=== PATIENT | male | born 1965 | race African-American/Black ===

== ENCOUNTER 2019-01-25 19:16 | Inpatient (IN) | payer OTHER ==
[2019-01-25 20:18] VITALS: BMI 28.2
--- NOTE | 2019-01-25 21:43 | HP ---
CIWA Score Nausea/Vomitin-No Nausea/No Vomiting Muscle Tremors: 1-None Visible, but [place] Anxiety: 0-No Anxiety, at Ease Agitation: 0-Normal Activity Paroxysmal Sweats: 3 Orientation: 0-Oriented Tacttile Disturbances: 3-Moderate Itch/Numb/Burn Auditory Disturbances: 0-None Visual Disturbances: 0-None Headache: 0-None Present CIWA-Ar Total Score: 7 - Admission Criteria OASAS Guidelines: Admission for Medically Managed Detox: Requires at least one of the followin. CIWA greater than 12 2. Seizures within the past 24 hours 3. Delirium tremens within the past 24 hours 4. Hallucinations within the past 24 hours 5. Acute intervention needed for co occurring medical disorder 6. Acute intervention needed for co occurring psychiatric disorder 7. Severe withdrawal that cannot be handled at a lower level of care (continued vomiting, continued diarrhea, abnormal vital signs) requiring intravenous medication and/or fluids 8. Patient presents the following: Acute intervention needed for co-occurring med or psych disorder (depression/ bipoalr not complaint with meds) Admission Criteria Met: Admission criteria met Admission ROS [facility] Chief Complaint: C/O WORSENING WITHDRAWAL SX S Allergies/Adverse Reactions: Allergies Allergy/AdvReac Type Severity Reaction Status Date / Time pork derived (porcine) Allergy Rash Verified 01/25/19 20:03 Pork/Porcine Containing Allergy Rash Verified 01/25/19 20:03 Products History of Present Illness: HERE FOR ALCOHOL DETOX. CLIENT IS REFERRED BY [facility] DUE TO HIS MED HX/O KIDNEY DISEASE, PE AND DVTS ON AC. HE PRESENTS WITH C/O WORSENING WITHDRAWAL SX' S. SEEKING STABILIZATION. LAST DRINK ONE DAY AGO. + CIWA, + EYE DISPLAYER DUE TO WITHDRAWAL SX'S,. DENIES BLACK OUTS AND SEIZURES DT'S AV . REPORTS LONGEST CLEAN TIME 3 YEARS. DENIES ANY IN THE PAST YEAR. LIVES WITH FRIENDS, UNEMPLOYED , DENIES LEGALS Exam Limitations: No Limitations - Ebola screening Have you traveled outside of the country in the last 21 days: No (N) Have you had contact with anyone from an Ebola affected area: No Do you have a fever: No - Review of Systems Constitutional: Chills, Loss of Appetite, Night Sweats, Changes in sleep EENT: reports: Tearing, Dental Problems (MISSING TEETH) Respiratory: reports: No Symptoms reported Cardiac: reports: No Symptoms Reported GI: reports: Poor Fluid Intake : reports: No Symptoms Reported Musculoskeletal: reports: No Symptoms Reported Integumentary: reports: Dryness Neuro: reports: Headache, Tremors Endocrine: reports: No Symptoms Reported Hematology: reports: Blood Clots (DVT/PE) Psychiatric: reports: Orientated x3, Agitated (IRRITABLE), Anxious, Depressed Other Systems: Reviewed and Negative Patient History - Patient Medical History Hx Anemia: No Hx Asthma: Yes (HX/O NOT ON MEDS) Hx Chronic Obstructive Pulmonary Disease (COPD): No Hx Cancer: No Hx Cardiac Disorders: No Hx Congestive Heart Failure: No Hx Hypertension: Yes (AMLODIPINE) Hx Hypercholesterolemia: No Hx Pacemaker: No HX Cerebrovascular Accident: No Hx Seizures: No Hx Dementia: No Hx Diabetes: No Hx Gastrointestinal Disorders: No Hx Liver Disease: No Hx Genitourinary Disorders: No Hx Sexually Transmitted Disorders: No Hx Renal Disease (ESRD): Yes (STAGE 4 KIDNEY DISEASE) Hx Thyroid Disease: No Hx Human Immunodeficiency Virus (HIV): No Hx Hepatitis C: No Hx Depression: Yes (NO MEDS) Hx Suicide Attempt: No Hx Bipolar Disorder: Yes (NO MEDS) Hx Schizophrenia: Yes (NO MEDS) Other Medical History: PE/DVTS ON AC - Patient Surgical History Past Surgical History: No - PPD History Previous Implant?: Yes Documented Results: Negative w/o proof Implanted On Prior [facility] Admission?: No PPD to be Administered?: Yes - Smoking Cessation Smoking history: Current every day smoker Have you smoked in the past 12 months: Yes Aproximately how many cigarettes per day: 10 Hx Chewing Tobacco Use: No Initiated information on smoking cessation: Yes 'Breaking Loose' booklet given: 01/25/19 - Substance & Tx. History Hx Alcohol Use: Yes Hx Substance Use: Yes Substance Use Type: Alcohol, Cocaine Hx Substance Use Treatment: Yes ([facility]) - Substances abused Alcohol Substance route: Oral Frequency: Daily Amount used: ' too much', can't detect Age of first use: 12 Date of last use: 01/25/19 Crack Substance route: Smoking Frequency: Daily Amount used: 200 to 300 hundred Age of first use: 17 Date of last use: 01/25/19 Admission Physical Exam [facility] - Vital Signs Vital Signs: Vital Signs - 24 hr 01/25/19 20:01 Temperature 97.4 F L Pulse Rate 86 Respiratory 16 Rate Blood Pressure 184/110 H - Physical General Appearance: Yes: Mild Distress, Tremorous (FELT), Other (MALODUROUS UNKEPT) HEENTM: Yes: EOMI, Normocephalic, Normal Voice, JUSTIN, Pharynx Normal, Other ( DISCOLORED STAINED TEETH) Respiratory: Yes: Chest Non-Tender, Lungs Clear, Normal Breath Sounds, No Respiratory Distress, No Accessory Muscle Use Neck: Yes: No masses,lesions,Nodules, Supple, Trachea in good position Breast: Yes: Breasts Symetrical, No Discharge Cardiology: Yes: Regular Rhythm, S1, S2, Murmur Abdominal: Yes: Non Tender, Soft, Increased Bowel Sounds, Protuberent Genitourinary: Yes: Within Normal Limits Back: Yes: Normal Inspection Musculoskeletal: Yes: Gait Steady Extremities: Yes: Normal Range of Motion, Non-Tender, Tremors, Pedal Edema ( EDEMA OF BOTHE LEGES L>R PITTING) Neurological: Yes: Fully Oriented, Alert, Motor Strength 5/5 Integumentary: Yes: Dry, Cold, Other (PILORECTION) Lymphatic: Yes: Within Normal Limits - Diagnostic (1) Alcohol dependence with withdrawal, uncomplicated Current Visit: Yes Status: Acute (2) Nicotine dependence Current Visit: Yes Status: Acute (3) Pulmonary embolism on long-term anticoagulation therapy Current Visit: Yes Status: Acute (4) DVT (deep venous thrombosis) Current Visit: Yes Status: Acute (5) HTN (hypertension) Current Visit: Yes Status: Acute (6) Substance induced mood disorder Current Visit: Yes Status: Acute (7) Poor personal hygiene Current Visit: Yes Status: Acute (8) At risk for dehydration due to poor fluid intake Current Visit: Yes Status: Acute (9) Psychiatric disorder Current Visit: Yes Status: Acute (10) Edema, pitting Current Visit: Yes Status: Acute Comment: BLE Cleared for Admission S - Detox or Rehab S Level of Care: Medically Managed Detox Regimen/Protocol: Librium Claeared for Rehab Admission: No Breathalyzer - Breathalyzer Breathalyzer: 0 Urine Drug Screen - Test Device Lot number: [id number] Expiration date: 09/17/20 - Control Is test valid?: Yes - Results Drug screen NEGATIVE: No Urine drug screen results: EDSON-Cocaine Inpatient Rehab Admission - Rehab Decision to Admit Inpatient rehab admission?: No
[2019-01-25] MEDS ORDERED: IBUPROFEN 400 MG TABLET (FP) PO PRN (21:52)
[2019-01-25] MEDS ORDERED: MAGNESIUM HYDROX 2400MG/30ML ORAL SUSPENSION 30 ML CUP PO PRN (21:52)
[2019-01-25] MEDS ORDERED: P-EPHED 60MG/TRIPROLIDI 2.5MG TABLET PO PRN (21:52)
[2019-01-25] MEDS ORDERED: MAGNESIUM CITRATE 300 ML BOTTLE PO PRN (21:52)
[2019-01-25] MEDS ORDERED: DICYCLOMINE HCL 10 MG CAPSULE PO PRN (21:52)
[2019-01-25] MEDS ORDERED: MELATONIN 5 MG TABLETS PO PRN (21:52)
[2019-01-25] MEDS ORDERED: ACETAMINOPHEN 325 MG TABLET (FP) PO PRN ×2 (21:52)
[2019-01-25] MEDS ORDERED: BISMUTH SUBSALICYLATE 524 MG/30 ML UD PO PRN (21:52)
[2019-01-25] MEDS ORDERED: METHOCARBAMOL 500 MG TABLET PO PRN (21:52)
[2019-01-25] MEDS ORDERED: guaiFENesin 200 MG/10 ML 10 ML UNIT-DOSE CUPS PO PRN (21:52)
[2019-01-25] MEDS ORDERED: chlordiazePOXIDE HCL 25 MG CAPSULE PO PRN (21:52)
[2019-01-25] MEDS ORDERED: ONDANSETRON *ODT* 4 MG TABLET SL PRN (21:52)
[2019-01-25] MEDS ORDERED: MENTHOL/PHENOL 1 EACH UD MM PRN (21:52)
[2019-01-25] MEDS ORDERED: MAG HYDROX/AL HYDROX/SIMETH 30 ML UNIT-DOSE CUP PO PRN (21:52)
[2019-01-25] MEDS ORDERED: NICOTINE POLACRILEX 2 MG GUM BUC PRN (21:52)
[2019-01-25] MEDS ORDERED: hydrOXYzine PAMOATE 25 MG CAPSULE (FP) PO PRN (21:52)
[2019-01-25] MEDS: chlordiazePOXIDE HCL 25 MG CAPSULE PO SCH (23:34)
[2019-01-25] MEDS: THIAMINE HCL 100 MG TABLET (FP) PO SCH (23:34)
--- NOTE | 2019-01-25 23:54 | HP ---
CIWA Score Nausea/Vomitin-No Nausea/No Vomiting Muscle Tremors: 1-None Visible, but [place] Anxiety: 0-No Anxiety, at Ease Agitation: 0-Normal Activity Paroxysmal Sweats: 3 Orientation: 0-Oriented Tacttile Disturbances: 3-Moderate Itch/Numb/Burn Auditory Disturbances: 0-None Visual Disturbances: 0-None Headache: 0-None Present CIWA-Ar Total Score: 7 - Admission Criteria OASAS Guidelines: Admission for Medically Managed Detox: Requires at least one of the followin. CIWA greater than 12 2. Seizures within the past 24 hours 3. Delirium tremens within the past 24 hours 4. Hallucinations within the past 24 hours 5. Acute intervention needed for co occurring medical disorder 6. Acute intervention needed for co occurring psychiatric disorder 7. Severe withdrawal that cannot be handled at a lower level of care (continued vomiting, continued diarrhea, abnormal vital signs) requiring intravenous medication and/or fluids 8. Admitting History and Physical - Smoking History Smoking history: Current every day smoker Have you smoked in the past 12 months: Yes Aproximately how many cigarettes per day: 10 - Alcohol/Substance Use Hx Alcohol Use: Yes Admission ROS [facility] Allergies/Adverse Reactions: Allergies Allergy/AdvReac Type Severity Reaction Status Date / Time pork derived (porcine) Allergy Rash Verified 01/25/19 20:03 Pork/Porcine Containing Allergy Rash Verified 01/25/19 20:03 Products - Ebola screening Have you traveled outside of the country in the last 21 days: No (N) Have you had contact with anyone from an Ebola affected area: No Do you have a fever: No Patient History - Patient Medical History Hx Anemia: No Hx Asthma: Yes (HX/O NOT ON MEDS) Hx Chronic Obstructive Pulmonary Disease (COPD): No Hx Cancer: No Hx Cardiac Disorders: No Hx Congestive Heart Failure: No Hx Hypertension: Yes (AMLODIPINE) Hx Hypercholesterolemia: No Hx Pacemaker: No HX Cerebrovascular Accident: No Hx Seizures: No Hx Dementia: No Hx Diabetes: No Hx Gastrointestinal Disorders: No Hx Liver Disease: No Hx Genitourinary Disorders: No Hx Sexually Transmitted Disorders: No Hx Renal Disease (ESRD): Yes (STAGE 4 KIDNEY DISEASE) Hx Thyroid Disease: No Hx Human Immunodeficiency Virus (HIV): No Hx Hepatitis C: No Hx Depression: Yes (NO MEDS) Hx Suicide Attempt: No Hx Bipolar Disorder: Yes (NO MEDS) Hx Schizophrenia: Yes (NO MEDS) Other Medical History: PE/DVTS ON AC - Patient Surgical History Past Surgical History: No Hx Neurologic Surgery: No Hx Cataract Extraction: No Hx Cardiac Surgery: No Hx Lung Surgery: No Hx Breast Surgery: No Hx Breast Biopsy: No Hx Abdominal Surgery: No Hx Appendectomy: No Hx Cholecystectomy: No Hx Genitourinary Surgery: No Hx Section: No Hx Orthopedic Surgery: No Anesthesia Reaction: No - PPD History Previous Implant?: Yes Documented Results: Negative w/o proof Implanted On Prior R Admission?: No Date: 01/27/19 - Smoking Cessation Smoking history: Current every day smoker Have you smoked in the past 12 months: Yes Aproximately how many cigarettes per day: 10 Hx Chewing Tobacco Use: No Initiated information on smoking cessation: Yes - Substances abused Alcohol Substance route: Oral Frequency: Daily Amount used: ' too much', can't detect Age of first use: 12 Date of last use: 01/25/19 Crack Substance route: Smoking Frequency: Daily Amount used: 200 to 300 hundred Age of first use: 17 Date of last use: 01/25/19 Admission Physical Exam [facility] - Vital Signs Vital Signs: Vital Signs - 24 hr 01/25/19 01/25/19 20:01 23:36 Temperature 97.4 F L 96.0 F L Pulse Rate 86 76 Respiratory 16 16 Rate Blood Pressure 184/110 H 182/117 H - Diagnostic (1) Alcohol dependence with withdrawal, uncomplicated Current Visit: Yes Status: Acute (2) Nicotine dependence Current Visit: Yes Status: Acute (3) Pulmonary embolism on long-term anticoagulation therapy Current Visit: Yes Status: Acute (4) DVT (deep venous thrombosis) Current Visit: Yes Status: Acute (5) HTN (hypertension) Current Visit: Yes Status: Acute (6) Substance induced mood disorder Current Visit: Yes Status: Acute (7) Poor personal hygiene Current Visit: Yes Status: Acute (8) At risk for dehydration due to poor fluid intake Current Visit: Yes Status: Acute (9) Psychiatric disorder Current Visit: Yes Status: Acute (10) Edema, pitting Current Visit: Yes Status: Acute Comment: BLE Breathalyzer - Breathalyzer Breathalyzer: 0 Urine Drug Screen - Test Device Lot number: [id number] Expiration date: 09/17/20 - Control Is test valid?: Yes - Results Drug screen NEGATIVE: No Urine drug screen results: EDSON-Cocaine
--- NOTE | 2019-01-26 00:01 | PN ---
[facility] Progress Note Note: PT WITH ABN EKG NSR W/ SINUS ARRHYTHMIA POSSIBLE L ATRIAL ENLARGEMENT INCOMPLETE R BBB LVH ST/T WAVE ABN CONSIDER INFERIOR/ANTEROLATERAL ISCHEMIA PROLONGED QT- QT/QTC 426/482 CLIENT W/ REPORTED HX/O PE, DVT ON AC. HE ALSO HAS HX OF HTN NON COMPLIANCE WITH MEDS. HEART MURMUR HEARD ON EXAM. CLIENT ALSO WITH COCAINE USE. PRESENTLY CLIENT DENIES ANY CARDIAC COMPLAINTS, +WITHDRAWAL SX'S. NO PREVIOUS EKG TO COMPARE WILL REPEAT IN AM CONT TO MONITOR CLINICALLY. Vital Signs Temperature 96.0 F L 01/25/19 23:36 Pulse Rate 76 01/25/19 23:36 Respiratory Rate 16 01/25/19 23:36 Blood Pressure 182/117 H 01/25/19 23:36 O2 Sat by Pulse Oximetry (%)
[2019-01-26] MEDS: chlordiazePOXIDE HCL 25 MG CAPSULE PO SCH ×4 (06:07→22:29)
[2019-01-26] MEDS ORDERED: PRENATAL VITAMINS W/ FOLIC ACID TABLET (FP) PO SCH (10:00)
[2019-01-26] MEDS ORDERED: NICOTINE 14 MG/24 HOURS TOPICAL PATCH TD SCH (10:00)
[2019-01-26] MEDS ORDERED: amLODIPine BESYLATE 10 MG TABLET (FP) PO SCH (10:00)
--- NOTE | 2019-01-26 10:42 | PN ---
[facility] CIWA - CIWA Score Nausea/Vomitin-No Nausea/No Vomiting Muscle Tremors: 1-None Visible, but [place] Anxiety: 2 Agitation: 2 Paroxysmal Sweats: 1-Minimal Palms Moist Orientation: 0-Oriented Tacttile Disturbances: 2-Mild Itch/Numbness/Burn Auditory Disturbances: 0-None Visual Disturbances: 0-None Headache: 0-None Present CIWA-Ar Total Score: 8 S Progress Note (SOAP) Subjective: c/o of interrupted sleep, chills, c/o lower extremity swelling Denies chest pain, headache dizziness, SOB Objective: 01/26/19 10:39 Vital Signs Temperature 97.0 F L 01/26/19 09:12 Pulse Rate 84 01/26/19 09:12 Respiratory Rate 18 01/26/19 09:12 Blood Pressure 165/106 H 01/26/19 09:12 O2 Sat by Pulse Oximetry (%) labs pending Assessment: Patient present for alcohol detox w/ hx of PE, DVT on coumadin, HTN on amlodipine 10 mg qd ( non-compliant with meds ), kidney first time at [facility] with abnormal ekg on admission, denies any cardiac symptoms at this time. EKG repeated d/t abnormal EKG on admission EKG on admission present for abnormal , NSR W/ SINUS ARRHYTHMIA, POSSIBLE L ATRIAL ENLARGEMENT, INCOMPLETE R BBB, LVH, ST/T WAVE ABN CONSIDER INFERIOR/ ANTEROLATERAL ISCHEMIA, PROLONGED QT- QT/QTC 426/482 Repeat EKG NSR , Incomplete RBB, Left Anterior fociluar block, left ventricular hypertrophy, ST and T wave abnormality inferior ischemia Vital Signs Temperature 97.9 F 01/26/19 11:07 Pulse Rate 87 01/26/19 11:07 Respiratory Rate 18 01/26/19 11:07 Blood Pressure 170/101 H 01/26/19 11:07 O2 Sat by Pulse Oximetry (%) Patient Aox3 s1 s2 murmur no adventitious breath sounds EENT WNL + bilateral lower extremity edema non-pitting full ROM no gait disturbance abnormal EKG labs pending elevated BP Patient sent to [facility] for further evaluation d/t hx of multiple commodities and abnormal EKG, once cleared patient may return to [facility] to continue treatment, no provider available to endorse patient Lidya Shearer RN at [facility]. 01/26/19 11:24
--- NOTE | 2019-01-26 10:56 | EKG ---
Test Reason : Blood Pressure : / mmHG Vent. Rate : 078 BPM Atrial Rate : 078 BPM P-R Int : 204 ms QRS Dur : 104 ms QT Int : 424 ms P-R-T Axes : 075 -52 206 degrees QTc Int : 483 ms NORMAL SINUS RHYTHM POSSIBLE LEFT ATRIAL ENLARGEMENT LEFT ANTERIOR FASCICULAR BLOCK LEFT VENTRICULAR HYPERTROPHY PROLONGED QT ABNORMAL ECG WHEN COMPARED WITH ECG OF 25-JAN-2019 22:55, NO SIGNIFICANT CHANGE WAS FOUND Confirmed by MELVIN HERNANDES, XOCHITL ([id number]) on 01/26/2019 10:56:41 AM Referred By: Freeman Gonzalez Confirmed By:XOCHITL CHARLES MD
--- NOTE | 2019-01-26 10:57 | EKG ---
Test Reason : Blood Pressure : / mmHG Vent. Rate : 077 BPM Atrial Rate : 077 BPM P-R Int : 192 ms QRS Dur : 104 ms QT Int : 426 ms P-R-T Axes : 073 -53 230 degrees QTc Int : 482 ms NORMAL SINUS RHYTHM WITH SINUS ARRHYTHMIA POSSIBLE LEFT ATRIAL ENLARGEMENT INCOMPLETE RIGHT BUNDLE BRANCH BLOCK LEFT ANTERIOR FASCICULAR BLOCK LEFT VENTRICULAR HYPERTROPHY PROLONGED QT ABNORMAL ECG NO PREVIOUS ECGS AVAILABLE Confirmed by MELVIN HERNANDES, XOCHITL ([id number]) on 01/26/2019 10:57:11 AM Referred By: Freeman Gonzalez Confirmed By:XOCHITL CHARLES MD
[2019-01-26 11:08] VITALS: BP 170/101; PULSE 87; TEMP 97.9
[2019-01-26 12:02] LABS: HEMATOCRIT 33.9 % (35.4-49); MCH 23.6 pg (25.7-33.7); MCHC 32.4 g/dl (32.0-35.9); MEAN CELL VOLUME 72.8 fl (80-96); MEAN PLT VOLUME 9.1 fl (7.5-11.1); PLATELET COUNT 300 K/MM3 (134-434); RBC 4.66 M/mm3 (4.00-5.60); RDW 20.9 % (11.9-15.9)
[2019-01-26 12:07] LABS: ALBUMIN 2.9 g/dl (3.4-5.0); BILIRUBIN,TOTAL 0.3 mg/dL (0.2-1); BLOOD UREA NITROGEN 35.2 mg/dL (7-18); CALCIUM 8.5 mg/dL (8.5-10.1); CREATININE 1.9 mg/dL (0.55-1.3); POTASSIUM 3.5 mmol/L (3.5-5.1); TOT PROT 6.3 g/dl (6.4-8.2)
[2019-01-26 12:24] LABS: INR 1.78 (0.83-1.09); PROTHROMBIN TIME (PATIENT) 21.1 SEC (9.7-13.0)
--- NOTE | 2019-01-26 15:45 | EKG ---
Test Reason : Blood Pressure : / mmHG Vent. Rate : 081 BPM Atrial Rate : 081 BPM P-R Int : 182 ms QRS Dur : 098 ms QT Int : 398 ms P-R-T Axes : 068 -51 160 degrees QTc Int : 462 ms NORMAL SINUS RHYTHM POSSIBLE LEFT ATRIAL ENLARGEMENT INCOMPLETE RIGHT BUNDLE BRANCH BLOCK LEFT ANTERIOR FASCICULAR BLOCK LEFT VENTRICULAR HYPERTROPHY CANNOT RULE OUT SEPTAL INFARCT , AGE UNDETERMINED ABNORMAL ECG WHEN COMPARED WITH ECG OF 25-JAN-2019 22:59, INCOMPLETE RIGHT BUNDLE BRANCH BLOCK IS NOW PRESENT Confirmed by MELVIN HERNANDES, XOCHITL ([id number]) on 01/26/2019 3:45:12 PM Referred By: Freeman Gonzalez Confirmed By:XOCHITL CHARLES MD
[2019-01-26] MEDS ORDERED: WARFARIN NA 5 MG TABLET (UD) PO SCH (18:00)
[2019-01-26] MEDS: THIAMINE HCL 100 MG TABLET (FP) PO SCH (22:29)
[2019-01-27] MEDS ORDERED: chlordiazePOXIDE HCL 25 MG CAPSULE PO SCH (05:00)
[2019-01-28] MEDS ORDERED: chlordiazePOXIDE HCL 10 MG CAPSULE PO PRN
[2019-01-28] MEDS ORDERED: chlordiazePOXIDE HCL 10 MG CAPSULE PO SCH (05:00)
[2019-01-29] MEDS ORDERED: chlordiazePOXIDE HCL 10 MG CAPSULE PO SCH (05:00)
[2019-01-30] MEDS ORDERED: chlordiazePOXIDE HCL 10 MG CAPSULE PO ONE (05:00)
== END 2019-01-26 23:40 | disposition short-term general hospital (02) | DRG 774 ==
LOC: YASAS 19:16 → Y3N 21:45
PROVIDERS: ADMIT Allergy & Immunology; ATTEND Allergy & Immunology
PROC: HZ2ZZZZ Detoxification Services for Substance Abuse Treatment (ICD-10-PCS; principal; 2019-01-25)
DX: F10.230 Alcohol dependence with withdrawal, uncomplicated (principal); F14.20 Cocaine dependence, uncomplicated; F17.210 Nicotine dependence, cigarettes, uncomplicated; F99 Mental disorder, not otherwise specified; I12.9 Hypertensive chronic kidney disease with stage 1 through stage 4 chronic kidney disease, or unspecified chronic kidney disease; N18.4 Chronic kidney disease, stage 4 (severe); I26.99 Other pulmonary embolism without acute cor pulmonale; I82.409 Acute embolism and thrombosis of unspecified deep veins of unspecified lower extremity; R01.1 Cardiac murmur, unspecified; R94.31 Abnormal electrocardiogram [ECG] [EKG]; R03.0 Elevated blood-pressure reading, without diagnosis of hypertension; J45.909 Unspecified asthma, uncomplicated; R46.0 Very low level of personal hygiene; R63.8 Other symptoms and signs concerning food and fluid intake; R60.0 Localized edema; Z91.14 Patient's other noncompliance with medication regimen; Z79.01 Long term (current) use of anticoagulants; Z91.018 Allergy to other foods
CPT/HCPCS: 36415; 80053; 85027; 85610; 86593; 93005; 93010

== ENCOUNTER 2019-01-26 11:55 | Emergency (ER) | payer OTHER ==
[2019-01-26 12:09] VITALS: BMI 28.2
--- NOTE | 2019-01-26 13:39 | PDOC ---
Documentation entered by Yaniv Brown SCRIBE, acting as scribe for Laquita Todd MD. Laquita Todd MD: This documentation has been prepared by the Stephanie lewis Xhesika, SCRIBE, under my direction and personally reviewed by me in its entirety. I confirm that the documentation accurately reflects all work, treatment, procedures, and medical decision making performed by me. History of Present Illness - General Chief Complaint: Abnormal Lab Results (Outside) Stated Complaint: Blood Pressure Problem Time Seen by Provider: 01/26/19 12:11 History Source: Patient Exam Limitations: No Limitations - History of Present Illness Initial Comments: 01/26/19 12:19 HPI The patient is a 53 year old male with a significant past medical history of DVT on coumadin (since summer 2018, al'juliane Garcia), HTN on amlodipine 10 mg qd ( non-compliant with meds), kidney disease, alcohol and cocaine use who presents to the ED BIBA from [facility] with abnormal ekg on admission. Patient notes he ran out of his usual medications and has been admitted to detox since last night. EKG has demonstrated abnormal ST-T wave segments, left atrial enlargement and prolonged QTC. Patient denies any complaints here in the ED. last used cocaine and alcohol yesterday. EKG reports at [facility] show NSR W/ SINUS ARRHYTHMIA, POSSIBLE L ATRIAL ENLARGEMENT, INCOMPLETE R BBB, LVH, ST/T WAVE ABN CONSIDER INFERIOR/ ANTEROLATERAL ISCHEMIA, PROLONGED QT- QT/QTC 426/482. Repeated EKG at [facility] shows NSR , Incomplete RBB, Left Anterior fociluar block, left ventricular hypertrophy, ST and T wave abnormality inferior ischemia. Denies fever, chills, chest pain, SOB, palpitation, dizziness, weakness, N, V, D , abdominal pain, bladder and bowel problems, focal weakness/paresthesias, leg swelling/pain, rash. poorly compliant with medications including amlodipine and warfarin. No new changes in medications. Allergies: Pork containing products Past Medical History/PSH: PE, DVT on coumadin, HTN on amlodipine 10 mg qd ( non -compliant with meds ), kidney disease, alcohol and cocaine use Social history: alcohol and cocaine use Meds: as documented in EMR Family history: noncontributory Review of systems Constitutional: no fevers or chills. No weakness HEENT: no headache or dizziness. No congestion. No visual/hearing disturbances. CVS: no cp or syncope. Resp: no sob. No cough. Gastrointestinal: no abdominal pain, nausea or vomiting. Genitourinary: no urinary sx, hematuria. MUSCULOSKELETAL: No joint pain and swelling. No neck or back pain. SKIN: no redness or skin changes, no discharge, no rash. No wounds. Hematologic: no easy bruising/bleeding. NEUROLOGIC: No headache, dizziness, LOC or altered mental status. No weakness, numbness or tingling. Psych: no anxiety or depression Allergic/Immunologic: no allergies All other systems reviewed and negative, or as documented in HPI. Physical exam General: Well appearing, awake and alert, NAD. HEENT: NCAT, PERRL, EOMI, clear conjunctiva, anicteric, moist mucus membranes, clear oropharynx, no oral lesions.. Neck: neck supple, FROM Resp: CTAB, normal and even respirations, no respiratory distress CVS: RRR, no murmurs, 2+ peripheral pulses throughout, +peripheral edema Abdomen: soft, NTND, no rebound or guarding. No CVAT. Back: nontender, normal inspection and ROM MSK: no edema, SHEPPARD x4, ROM intact. No clubbing or cyanosis. normal bulk and tone. Extremities: + b/l peripheral edema. no redness. +left calf tenderness (h/o DVT ) Neuro: alert, oriented appropriately; no focal neurologic deficits Psych: Calm and cooperative Skin: warm and well perfused, cap refill <2 sec, normal color 01/26/19 13:34 01/26/19 14:29 01/26/19 15:36 01/26/19 15:40 Past History - Past Medical History Allergies/Adverse Reactions: Allergies Allergy/AdvReac Type Severity Reaction Status Date / Time pork derived (porcine) Allergy Rash Verified 01/25/19 20:03 Pork/Porcine Containing Allergy Rash Verified 01/25/19 20:03 Products Home Medications: Ambulatory Orders Amlodipine Besylate [Norvasc -] 10 mg PO DAILY 01/25/19 Warfarin Sodium [Coumadin] 5 mg PO DAILY 01/25/19 Anemia: No Asthma: Yes (HX/O NOT ON MEDS) Cancer: No Cardiac Disorders: No CVA: No COPD: No CHF: No Dementia: No Diabetes: No GI Disorders: No Disorders: No HTN: Yes (AMLODIPINE) Hypercholesterolemia: No Kidney Stones: No Liver Disease: No Seizures: No Thyroid Disease: No - Surgical History Abdominal Surgery: No Appendectomy: No Cardiac Surgery: No Cholecystectomy: No Lung Surgery: No Neurologic Surgery: No Orthopedic Surgery: No - Reproductive History Testicular Surgery: No - Psycho Social/Smoking Cessation Hx Smoking History: Current some day smoker Have you smoked in the past 12 months: Yes Number of Cigarettes Smoked Daily: 5 Information on smoking cessation initiated: No 'Breaking Loose' booklet given: 01/25/19 Hx Alcohol Use: No Drug/Substance Use Hx: No Substance Use Type: Alcohol, Cocaine Hx Substance Use Treatment: Yes ([facility]) *Physical Exam - Vital Signs Last Vital Signs Temp Pulse Resp BP Pulse Ox 98 F 80 18 169/106 H 97 01/26/19 12:06 01/26/19 12:06 01/26/19 12:06 01/26/19 12:06 01/26/19 12:06 Heart Score/ECG Review #1 ECG reviewed & interpreted by me at: 12:20 General ECG Interpretation: Sinus Rhythm, Normal Rate, Normal Intervals 01/26/19 14:00 EKG normal sinus rhythm at 79 bpm, no interval abnormalities, narrow QRS, ST and T wave segments and morphology normal. Nonspecific T wave abnormalities in anterolateral leads. - of note prior EKG with Wellen's type biphasic T waves in V2-3 Medical Decision Making - Medical Decision Making 01/26/19 13:38 Vital Signs Temp Pulse Resp BP Pulse Ox 98 F 80 18 169/106 H 97 01/26/19 12:06 01/26/19 12:06 01/26/19 12:06 01/26/19 12:06 01/26/19 12:06 Vital signs are notable for hypertension with 69/106, remainder vital signs are within normal limits. Prior laboratory results that were obtained at [facility] were also reviewed with baseline CKD, electrolytes are normal., INR subtherapeutic. Patient currently has no symptoms here, will repeat EKG as prior from [facility] on admission was also reviewed with nonspecific T wave abnormalities particularly in the anterolateral distribution. cxr clear, cardiomegaly 01/26/19 13:59 Troponin is elevated 0.11 however patient does not have any chest pain EKG normal sinus rhythm at 79 bpm, no interval abnormalities, narrow QRS, ST and T wave segments and morphology normal. Nonspecific T wave abnormalities in anterolateral leads. - of note prior EKG with Wellen's type biphasic T waves in V2-3 now chest pain free poor compliance with medications and medical comorbidities. treating as NSTEMI, +trop, no chest pain. 01/26/19 14:28 - seen at bedside with Dr Vigil, [facility] cards, discussed care and reviewed EKG/ workup thus far given dynamic changes, however no cp, can benefit from admission to [facility], [facility] transfer and intervention/urgent catheterization. pt is allergic to heparin derived product (pork/porcine allergy), pt unaware of using heparin derived products previously, pork allergy of rash, no anaphylaxis confirmed with pharmacy, d/w cards, hold off on anticoagulant for now ASA given lipitor and plavix IVF hydration, transfer to [facility] tele cards. accepted by Dr Vigil, see cs note. 01/26/19 15:47 01/26/19 20:48 Discharge - Discharge Information Problems reviewed: Yes Clinical Impression/Diagnosis: NSTEMI (non-ST elevated myocardial infarction) Condition: Fair Disposition: TRANSFER ACUTE CARE/OTHER HOSP - Follow up/Referral - Patient Discharge Instructions - Post Discharge Activity - Transfer to Acute Care Facility Receiving Facility Name: [facility] Accepting Physician:: Dr Vigil
[2019-01-26] MEDS ORDERED: ASPIRIN 81 MG CHEWABLE TABLETS PO ONE (13:54)
[2019-01-26] MEDS ORDERED: ASPIRIN 81 MG CHEWABLE TABLETS ONE (14:08)
[2019-01-26] MEDS ORDERED: HEPARIN NA (PORCINE) 5,000 UNITS/ML 1ML VIAL IVPUSH PRN ×2 (15:02)
[2019-01-26] MEDS ORDERED: HEPARIN - 25,000 UNIT in SODIUM CHLORIDE 495 ML IV SCH (15:15)
[2019-01-26] MEDS ORDERED: CLOPIDOGREL BISULFATE 300 MG TABLET PO ONE (15:21)
[2019-01-26] MEDS ORDERED: ATORVASTATIN CA 80 MG TABLET (FP) PO ONE (15:22)
[2019-01-26] MEDS ORDERED: SODIUM CHLORIDE 0.9% 500 ML INFUS.BAG IV ONE (15:39)
[2019-01-26] MEDS ORDERED: ATORVASTATIN CA 80 MG TABLET (FP) ONE (15:42)
[2019-01-26] MEDS ORDERED: CLOPIDOGREL BISULFATE 300 MG TABLET ONE (15:42)
--- NOTE | 2019-01-26 15:58 | CON.CARD ---
Consult Consult Specialty:: Cardiology Referred by:: ER Reason for Consultation:: abnl ekg, elevated cardiac enzymes - History of Present Illness Chief Complaint: sent to ER for abnl EKG History of Present Illness: 53 year old man with a pmh HTN, DVT/PE on coumadin (dx at [facility] this past summer 2018), CKD, cocaine and etoh abuse went for admission to [facility] yesterday and on admission EKG found to have significant abnormalities thus referred to the ER. In the ER pt noted to be completely asymptomatic but found to elevated cardiac enzymes. Pt seen and examined today in [facility]. asking for something to eat, ambulatory around the ER. Denies any symptoms at all. Denies having had any chest pain or sob recently. He has not followed with a doctor since his admission to [facility] but states that he has followed in coumadin clinic and that his INR has been therapeutic. pt states that he last used cocaine on 01/24 and etoh 01/25. - History Source History Provided By: Patient, Medical Record Limitations to Obtaining History: No Limitations - Past Medical History Cardio/Vascular: Yes: Deep Vein Thrombosis, HTN Heme/Onc: Yes: Other - Alcohol/Substance Use Hx Alcohol Use: No - Smoking History Smoking history: Current some day smoker Have you smoked in the past 12 months: Yes Aproximately how many cigarettes per day: 5 - Social History ADL: Independent History of Recent Travel: No Home Medications - Allergies Allergies/Adverse Reactions: Allergies Allergy/AdvReac Type Severity Reaction Status Date / Time pork derived (porcine) Allergy Rash Verified 01/25/19 20:03 Pork/Porcine Containing Allergy Rash Verified 01/25/19 20:03 Products - Home Medications Home Medications: Ambulatory Orders Amlodipine Besylate [Norvasc -] 10 mg PO DAILY 01/25/19 Warfarin Sodium [Coumadin] 5 mg PO DAILY 01/25/19 Review of Systems - Review of Systems Constitutional: denies: No Symptoms, Chills, Diaphoresis, Fever, Lethargy, Loss of Appetite, Malaise, Night Sweats, Unintentional Wgt. Loss, Weakness, Other Eyes: denies: No Symptoms, Blind Spots, Blurred Vision, Double Vision, Eye Pain , Floaters, Photophobia, Recent Change in Vision, Other HENT: denies: No Symptoms, Difficult Swallowing, Ear Discharge, Ear Pain, Epistaxis, Gingival Bleeding, Hearing Loss, Mouth Swelling, Nasal Congestion, Ocular Prosthesis, Throat Pain, Toothache, Ringing in Ears, Other Neck: denies: No Symptoms, Decreased ROM, Lumps, Pain on Movement, Stiffness, Swollen Glands, Tenderness, Other Cardiovascular: denies: No Symptoms, Chest Pain, Edema, Palpitations, Shortness of Breath, Other Respiratory: denies: No Symptoms, Cough, Exercise Intolerance, Hemoptysis, Orthopnea, PND, Snoring, SOB, SOB on Exertion, Wheezing, Other Gastrointestinal: denies: No Symptoms, Abdominal Pain, Bloating, Constipation, Diarrhea, Dysphagia, Indigestion, Melena, Nausea, Rectal Bleeding, Vomiting, Vomiting Blood, Other Genitourinary: denies: No Symptoms, Burning, Discharge, Dysuria, Flank Pain, Frequency, Hematuria, Incontinence, Lesions, Menses, Pain, Testicular Mass, Testicular Pain, Testicular Swelling, Urgency, Vaginal Bleeding, Other Musculoskeletal: denies: No Symptoms, Back Pain, Crepitus, Decreased ROM, Extremity Pain, Joint Pain, Joint Swelling, Muscle Pain, Muscle Cramps, Muscle Weakness, Other Integumentary: denies: No Symptoms, Blister, Bruising, Change in Color, Eczema, Erythema, Incision, Lesions, Lump, Pallor, Pruritis, Rash, Wound, Other Neurological: denies: No Symptoms, Change in LOC, Change in Speech, Confusion, Dizziness, Headache, Incoordination, Numbness, Parasthesia, Pre-Existing Deficit , Seizure, Syncope, Tremors, Unsteady Gait, Weakness, Other Endocrine: denies: No Symptoms, Excessive Sweating, Flushing, Increased Hunger, Increased Thirst, Intolerance to Cold, Intolerance to Heat, Unexplained Weight Gain, Unexplained Weight Loss, Other Hematology/Lymphatic: denies: No Symptoms, Easily Bruised, Excessive Bleeding, Swollen Glands, Other Psychiatric: denies: No Symptoms, Altered Sleep Pattern, Anxiety, Depression, Hallucinations, Panic, Paranoia, Suicidal, Other - Risk Factors Known Risk Factors: Yes: Hypertension Vital Signs: Vital Signs Temperature 98 F 01/26/19 12:06 Pulse Rate 80 01/26/19 12:06 Respiratory Rate 18 01/26/19 12:06 Blood Pressure 169/106 H 01/26/19 12:06 O2 Sat by Pulse Oximetry (%) 97 01/26/19 12:06 Constitutional: Yes: Well Nourished, No Distress, Calm Eyes: Yes: WNL, Conjunctiva Clear, EOM Intact HENT: Yes: WNL, Atraumatic, Normocephalic Neck: Yes: WNL, Supple, Trachea Midline Respiratory: Yes: WNL, Regular, CTA Bilaterally Gastrointestinal: Yes: WNL, Normal Bowel Sounds Renal/: Yes: WNL Cardiovascular: Yes: WNL, Regular Rate and Rhythm. No: Bradycardia, Tachycardia , Pulse Irregular, Gallop, Rub, Varicosities JVD: No Carotid Bruit: No PMI: Non-Displaced Heart Sounds: Yes: S1, S2. No: Split S2, S3, S4, Clicks, Gallop, Rub, Bruit Murmur: No: Systolic Murmur, Diastolic Murmur Musculoskeletal: Yes: WNL Extremities: Yes: WNL Edema: No Peripheral Pulses WNL: Yes Peripheral Pulses: 2+ Left Doralis Pedis, 2+ Right Dorsalis Pedis Integumentary: Yes: WNL Neurological: Yes: WNL, Alert, Oriented ...Motor Strength: WNL Psychiatric: Yes: WNL, Alert, Oriented - Other Data Labs, Other Data: Troponin, BNP 01/26/19 13:05 Troponin I 0.11 H Troponin, BNP 01/26/19 13:05 Troponin I 0.11 H ekg-nsr, LVH, ST/T wave abnl consider anterior and inferior injury vs repolarization abnl Echo: Report Reviewed Ejection Fraction %: LVEF > or = 40 % Imaging - Results Chest X-ray: Report Reviewed, Image Reviewed EKG: Report Reviewed, Image Reviewed Other: Report Reviewed, Image Reviewed Assessment/Plan 53 year old man with a pmh HTN, DVT/PE on coumadin (dx at [facility] this past summer 2018), CKD, cocaine and etoh abuse went for admission to [facility] detox yesterday and on admission EKG found to have significant abnormalities thus referred to the ER. In the ER pt noted to be completely asymptomatic but found to elevated cardiac enzymes. ambulatory around the ER. Denies any symptoms at all. Denies having had any chest pain or sob recently. He has not followed with a doctor since his admission to [facility] but states that he has followed in coumadin clinic and that his INR has been therapeutic. pt states that he last used cocaine on 01/24 and etoh 01/25. Abnormal EKG with elevated cardiac enzymes -pt completely asymptomatic, unlikely STEMI -cocaine use on 01/24 and etoh use on 01/25 -obtained EKG and Echo from [facility] from 11/2018 and 10/2018 EKG with similar findings to current ekg. Echo showed normal LVEF with severe concentric LVH. -suspect cardiac enzymes elevated from cocaine and etoh use prior to admission -EKG abnl likely secondary to known LVH/strain pattern -no indication for emergent cardiac catheterization especially as pt is asymptomatic and with elevated creatinine and INR -start ASA, Plavix, statin -avoid bblocker in setting of recent cocaine use. -pt reports porcine allergy and rash with pork products, confirmed with pharmacy here that heparin and lovenox cannot be used -will transfer to [facility] tele for closer observation and if develops chest pain consideration for more urgent cardiac catheterization -otherwise would be preferable to wait until renal function optimized, INR trends down, and adequate time after last cocaine use prior to cardiac cath -HTN control, non-adherent with amlodipine at home, can start nifedipine 30mg and titrate as needed.
[2019-01-26] MEDS ORDERED: NIFEdipine E.R. 30 MG TABLET (FP) PO SCH (16:30)
[2019-01-26] MEDS ORDERED: NIFEdipine E.R. 30 MG TABLET (FP) ONE (17:37)
[2019-01-26 17:44] VITALS: BP 191/111; PULSE 73; TEMP 97.6
--- NOTE | 2019-01-27 12:21 | EKG ---
Test Reason : Blood Pressure : / mmHG Vent. Rate : 079 BPM Atrial Rate : 079 BPM P-R Int : 174 ms QRS Dur : 100 ms QT Int : 402 ms P-R-T Axes : 067 -52 145 degrees QTc Int : 460 ms NORMAL SINUS RHYTHM POSSIBLE LEFT ATRIAL ENLARGEMENT INCOMPLETE RIGHT BUNDLE BRANCH BLOCK LEFT ANTERIOR FASCICULAR BLOCK LEFT VENTRICULAR HYPERTROPHY CANNOT RULE OUT SEPTAL INFARCT (CITED ON OR BEFORE 26-JAN-2019) T WAVE ABNORMALITY, CONSIDER ANTEROLATERAL ISCHEMIA ABNORMAL ECG WHEN COMPARED WITH ECG OF 26-JAN-2019 08:38, SERIAL CHANGES OF SEPTAL INFARCT PRESENT Confirmed by MAGDALENO AMARO MD ([id number]) on 01/27/2019 12:21:13 PM Referred By: Confirmed By:MAGDALENO AMARO MD
== END 2019-01-26 17:50 | disposition short-term general hospital (02) ==
LOC: JER 11:55
PROC: 3E0337Z Introduction of Electrolytic and Water Balance Substance into Peripheral Vein, Percutaneous Approach (ICD-10-PCS; principal; 2019-01-26)
DX: I21.4 Non-ST elevation (NSTEMI) myocardial infarction (principal); F17.210 Nicotine dependence, cigarettes, uncomplicated; Z86.718 Personal history of other venous thrombosis and embolism; Z79.01 Long term (current) use of anticoagulants; I10 Essential (primary) hypertension; Z91.14 Patient's other noncompliance with medication regimen; F10.99 Alcohol use, unspecified with unspecified alcohol-induced disorder; F14.90 Cocaine use, unspecified, uncomplicated; N28.9 Disorder of kidney and ureter, unspecified; J45.909 Unspecified asthma, uncomplicated; Z91.018 Allergy to other foods
CPT/HCPCS: 36415; 71046-TC-FY; 82550; 82553; 84484; 85730; 86850; 86900; 86901; 93005; 93010; 96360; 99285-25